=== PATIENT | female | born 1965 | race Caucasian/White ===

== ENCOUNTER 2017-03-13 10:06 | Outpatient (CLI) | payer OTHER | END 2017-03-13 10:07 | disposition home or self-care (01) | LOC: BICMAMMO 10:06 | PROVIDERS: ATTEND Nurse Practitioner Family | DX: Z12.31 Encounter for screening mammogram for malignant neoplasm of breast (principal); Z80.3 Family history of malignant neoplasm of breast | CPT/HCPCS: 77063; 77067 ==

== ENCOUNTER 2017-12-07 12:55 | Outpatient (CLI) | payer OTHER ==
--- NOTE | 2017-12-07 14:51 | ULT ---
LIMITED RIGHT BREAST ULTRASOUND: DATE: 12/07/2017. PROVIDED CLINICAL HISTORY: Right breast palpable abnormality. FINDINGS: Limited sonographic interrogation is performed of the right breast at the 12:30 location approximatel y 10 cm from the nipple in the region of palpable concern. There is a 1.9 cm mixed echogenicity irre gular mass present in the region of palpable concern. No axillary lymph node enlargement is evident sonographically. IMPRESSION: BI-RADS category 4 - suspicious for malignancy. Ultrasound-guided biopsy is recommended. Results an d recommendations discussed with the patient upon completion of the ultrasound exam. CODE CR POS: [facility]
== END 2017-12-07 12:56 | disposition home or self-care (01) ==
LOC: BICMAMMO 12:55
PROVIDERS: ATTEND Nurse Practitioner Family
DX: N63.10 Unspecified lump in the right breast, unspecified quadrant (principal); Z80.3 Family history of malignant neoplasm of breast
CPT/HCPCS: G0279

== ENCOUNTER → 2017-12-11 | Day surgery (SDC) | payer OTHER ==
--- NOTE | 2017-12-11 15:59 | ULT ---
PROCEDURE NOTE: PREPROCEDURE DIAGNOSIS: Right breast mass at the 12:30 position. POSTPROCEDURE DIAGNOSIS: Right breast mass at the 12:30 position. PROCEDURE: Ultrasound-guided core biopsy of right breast mass. MOBILE APPLICATION ENGINEER: Dr. Patton. COMPLICATIONS: None. ANESTHESIA: 10 mL of buffered 1% Lidocaine. SPECIMEN: Five 14-gauge core biopsy specimens of right breast mass. TECHNIQUE: Prior to the procedure, the risks and benefits of a right breast mass biopsy were explained with the patient and she consented fully to the procedure. The mass in the upper aspect of the breast was aga in found with ultrasound. The right breast is prepped and draped in the usual sterile fashion. Approach from lateral was performed. Lidocaine was used to anesthetize the skin and soft tissues mat rounding the mass. A small skin incision was made for passage of the 14 gauge core biopsy device. The 14-gauge core biopsy device was placed 5 separate times through the small skin incision and 5 sep arate core biopsy specimens were obtained. There were placed in formalin. After completion of the p rocedure, a biopsy clip was placed within the mass. Pressure was held to maintain hemostasis. The patient had a postprocedure mammogram which showed the biopsy clip along the posterior aspect of the right breast mass. This could only be seen on the MLO view as the mass was too far posterior to be pulled into view on the craniocaudal view. IMPRESSION: Status post ultrasound-guided biopsy of right breast mass. POS: [facility]
== END ==
LOC: BICULT 12:37
PROVIDERS: ATTEND Nurse Practitioner Family
PROC: 0HBT3ZX Excision of Right Breast, Percutaneous Approach, Diagnostic (ICD-10-PCS; principal; 2017-12-11)
DX: C50.211 Malignant neoplasm of upper-inner quadrant of right female breast (principal)
CPT/HCPCS: 19083; 88305

== ENCOUNTER 2017-12-14 15:37 | Outpatient (CLI) | payer OTHER ==
[2017-12-14 17:40] LABS: #Basophils 0.1 thou/uL (0.0-0.2); #Eosinphils 0.2 thou/uL (0.0-0.7); #Lymphocytes 2.1 thou/uL (1.20-3.40); #Monocytes 0.4 thou/uL (0.11-0.59); #Neutrophils 3.8 thou/uL (1.40-6.50); %Eosinophils 2.5 % (0.0-10.0); %Lymphocytes 32.6 % (21.0-51.0); %Monocytes 5.7 % (0.0-10.0); %Neutrophils 58.3 % (42.0-75.0); Hemoglobin 13.7 g/dL (12.0-16.0); Mean Corpuscular HGB CONC 33.2 g/dL (32.0-36.0); Mean Corpuscular Hemoglobin 28.2 pg (27.0-31.0); Mean Platelet Volume 6.7 fL (7.4-10.4); Platelet Count 273 thou/uL (130-400); Red Blood Cell (RBC) Count 4.84 mill/uL (4.20-5.40); White Blood Cell (WBC) Count 6.4 thou/uL (4.8-10.8)
[2017-12-14 18:07] LABS: Anion Gap 12 mmol/L (10-20); BUN (Urea Nitrogen) 9 mg/dL (9.8-20.1); Calc. Creatinine Clearance 0 mL/min (70-130); Calcium 9.2 mg/dL (7.8-10.44); Carbon Dioxide 25 mmol/L (22-29); Chloride 106 mmol/L (98-107); Estimated GFR-MDRD 77; Glucose 81 mg/dL (70-105); Potassium 3.8 mmol/L (3.5-5.1); Sodium 139 mmol/L (136-145)
== END 2017-12-14 15:38 | disposition home or self-care (01) ==
LOC: LABBT 15:37
PROVIDERS: ATTEND Surgery
DX: Z01.818 Encounter for other preprocedural examination (principal); C50.911 Malignant neoplasm of unspecified site of right female breast
CPT/HCPCS: 80048; 85025; 93005; 93010

== ENCOUNTER 2017-12-19 07:36 | Day surgery (SDC) | payer OTHER ==
[2017-12-14 16:01] VITALS: BMI 25.2
[2017-12-19] MEDS ORDERED: Lidocaine 1% PF 5 ML VIAL ONE ×3 (08:14→17:42)
--- NOTE | 2017-12-19 10:12 | ULT ---
ULTRASOUND GUIDED NEEDLE LOCALIZATION: HISTORY: Right breast mass at the 12:30 position right breast which has been previously biopsied with results obtained of poorly differentiated ductal carcinoma now for needle localization and excisional biopsy. After informed consent was obtained, the patient was prepped and draped in normal sterile fashion. L ocal anesthesia obtained with 1% Xylocaine mixed with sodium bicarb. A 7.5 cm Kellogg needle was advan denisse into the lesion without difficulty. It was placed along the more posterior portion of the mass w ith the needle placed beneath the region of the clip. The patient tolerated the procedure well. The re are no immediate complications of the procedure. IMPRESSION: Ultrasound-directed needle localization of right breast mass at the 12:30 position of the right breas t. POS: [facility]
--- NOTE | 2017-12-19 10:57 | NM ---
NUCLEAR MEDICINE LYMPHOSCINTIGRAPHY OF RIGHT BREAST: HISTORY: Right breast cancer. FINDINGS: After informed consent was obtained, the patient was prepped in the normal sterile fashion. Local an esthesia was obtained with a mixture of Lidocaine and sodium bicarb. A total of 4 separate injection s were performed around the needle with a total dose of 385 mCi of 99m Technetium filtered sulfur col loid. Axillary nodes were noted on the immediate imaging. The patient tolerated the procedure well. There were no immediate complications. IMPRESSION: Successful lymphoscintigraphy. POS: [facility]
[2017-12-19] MEDS ORDERED: Bupivacaine/Epinephrine 0.25% 30 ML VIAL ONE ×2 (11:04→12:08)
[2017-12-19] MEDS ORDERED: Lidocaine 2% PF 5 ML VIAL ONE ×2 (11:04→12:09)
[2017-12-19] MEDS ORDERED: CEFAZOLIN 2 GM/50 ML BAG ONE (11:22)
[2017-12-19] MEDS ORDERED: Fentanyl 100 MCG/2 ML VIAL ONE ×2 (11:22→13:19)
[2017-12-19] MEDS ORDERED: Midazolam HCl 2 mg/2 ml Vial ONE (11:22)
--- NOTE | 2017-12-19 14:11 | MMO ---
SPECIMEN RADIOGRAPH: HISTORY: Breast mass which had been previously biopsied and was now for excisional biopsy. FINDINGS: The Claunch needle was then placed and the breast specimen clip is identified. The mass is somewhat di fficult to distinguish due to the fact it has always been difficult to visualize but also appears to be present on this exam. IMPRESSION: Successful needle localization. POS: [facility]
--- NOTE | 2017-12-19 14:20 | RAD ---
SEMIUPRIGHT PORTABLE CHEST ONE VIEW: HISTORY: A 52-year-old female with a history of Mediport placement. FINDINGS: Left subclavian catheter and injection port in place. The tip is at the junction of the superior rosy a cava and left brachiocephalic vein. No pneumothorax or pleural effusion. Minimal stable increased markings bilaterally. IMPRESSION: 1. Left subclavian catheter and injection port place, with the tip at the junction of the superior v shanelle cava and left innominate vein. 2. Mild stable increased linear and interstitial markings. 3. No pneumothorax or pleural effusion. POS: [facility]
[2017-12-19] MEDS ORDERED: HYDROcodone/Acetaminophen 5/325 mg Tablet ONE (14:38)
[2017-12-19] MEDS ORDERED: Dexamethasone 20 MG/5 ML VIAL ONE (17:42)
[2017-12-19] MEDS ORDERED: ePHEDrine/0.9% NaCl/PF SYRINGE 50 mg/10 ml ONE (17:42)
[2017-12-19] MEDS ORDERED: PROPOFOL 200 MG/20 ML VIAL ONE (17:42)
[2017-12-19] MEDS ORDERED: Metoclopramide HCl 10 MG/2 ML VIAL ONE (17:42)
[2017-12-19] MEDS ORDERED: Ondansetron PF 4 MG/2 ML Vial ONE (17:42)
--- NOTE | 2017-12-20 08:14 | OP ---
DATE OF PROCEDURE: 12/19/2017 PREOPERATIVE DIAGNOSIS: Right breast cancer, clinical stage T1 N0 M0. POSTOPERATIVE DIAGNOSIS: Right breast cancer, clinical stage T1 N0 M0. PROCEDURES PERFORMED: 1. Right partial mastectomy after needle localization. 2. Right deep axillary node biopsy using sentinel protocol. 3. Left chest MediPort (tunneled central line with subcutaneous port, CT injectable). SURGEON: Blayne Call M.D. ANESTHESIA: General. ESTIMATED BLOOD LOSS: Minimal. COMPLICATIONS: None. FINDINGS: The tip of the catheter and the MediPort at the atriocaval junction. TECHNIQUE: The patient underwent preop needle localization wire to the previously biopsied clip area in the right breast as well as lymphoscintigraphy, which revealed update in the right axilla. She w as taken to the operating room and placed supine on the table. After general anesthetic was obtained , the 5 mL of methylene blue dye is infiltrated in the right nipple massaged for 10 minutes. The iglesia ateral neck, chest, arm, and axilla are prepped and draped in a sterile fashion. Local anesthetic wa s infiltrated over the left internal jugular vein. Internal jugular vein cannulated using a 22-gauge finder needle followed by a Seldinger needle. Wire was passed into the superior vena cava under flu oroscopic guidance. A benjamin was made at the wire entrance site. A separate 3-cm incision was made in the left upper chest. Subcutaneous pocket was made below the lower incision. Tubing for the MediPo rt tunneled from the inferior to superior incision. Introducer sheath was placed over the wire into the superior vena cava under fluoroscopic guidance. The dilator and the wire removed. The end of th e catheter was threaded into the sheath and the sheath is peeled away. The tip of the catheter is at the atriocaval junction. The MediPort tubing is cut to fit the MediPort at the lower incision and i s connected to the MediPort. The MediPort sewn to the chest wall and subcutaneous pocket using Prole ne. The MediPort flushes and draws blood without difficulties flushed with a heparin flush. The inc isions are closed using 3-0 Vicryl, 4-0 Monocryl, and Dermabond. Next, an incision was made on the inferior hairline of the right axilla. Neoprobe was used to find a n area of increased uptake. A blue node with high counts was removed. Second area of increased upta ke is removed as well. Background count then drops to near 0. The lymphatic tissue is sent to path for final diagnosis. The wound is irrigated and closed using 3-0 Vicryl, 4-0 Monocryl, and Dermabond . Incision is then made near wire entrance site in the right upper chest. Flaps are raised superior, m edially, inferior laterally around the end of the needle localization wire. The lump is marked with two short superior, one long lateral and sent to path for final diagnosis. Specimen x-ray revealed t he previous clip to be in the specimen. The wound was irrigated. Local anesthetic was applied. The wound was closed using 3-0 Vicryl, 4-0 Monocryl, and Dermabond. The patient was en route to recover y in stable condition. All instrument counts, needle counts, lap counts are correct.
== END 2017-12-19 15:15 | disposition home or self-care (01) ==
LOC: SDC 07:36
PROVIDERS: ATTEND Surgery
PROC: 0JH63WZ Insertion of Totally Implantable Vascular Access Device into Chest Subcutaneous Tissue and Fascia, Percutaneous Approach (ICD-10-PCS; principal; 2017-12-19)
PROC: 07B50ZX Excision of Right Axillary Lymphatic, Open Approach, Diagnostic (ICD-10-PCS; principal; 2017-12-19)
PROC: 0HBT0ZZ Excision of Right Breast, Open Approach (ICD-10-PCS; principal; 2017-12-19)
DX: C50.811 Malignant neoplasm of overlapping sites of right female breast (principal); H81.10 Benign paroxysmal vertigo, unspecified ear; Z17.1 Estrogen receptor negative status [ER-]; Z79.82 Long term (current) use of aspirin; Z79.899 Other long term (current) drug therapy
CPT/HCPCS: 19285; 71045; 76098; 78195; 88307; 88341; 88342; 96374; A9541; C1788; J1100; J1642; J2001; J2250; J2405; J2704; J2765; J3010; Q9968

== ENCOUNTER 2017-12-29 12:33 | Outpatient (CLI) | payer OTHER | END 2017-12-29 12:34 | disposition home or self-care (01) | LOC: ULT 12:33 | PROVIDERS: ATTEND Internal Medicine Hematology & Oncology | DX: Z51.11 Encounter for antineoplastic chemotherapy (principal); C50.211 Malignant neoplasm of upper-inner quadrant of right female breast; Z79.899 Other long term (current) drug therapy | CPT/HCPCS: 93306 ==

== ENCOUNTER 2018-12-03 09:15 | Outpatient (CLI) | payer OTHER ==
--- NOTE | 2018-12-03 09:58 | MMO ---
Bilateral MAMMO Bilat Diag DDI+THIAGO. CLINICAL HISTORY: Patient is 53 years old and is seen for diagnostic exam. The patient has the following family history of breast cancer: mother, malignant (generic), TRIPLE NEGATIVE. The patient has no personal history of cancer. The patient has a history of right Lumpectomy in 2018 - malignant and right Ultrasound Guided Core Biopsy - malignant. VIEWS: The views performed were: bilateral craniocaudal with tomosynthesis; bilateral mediolateral oblique with tomosynthesis; and bilateral mediolateral with tomosynthesis. FILMS COMPARED: The present examination has been compared to prior imaging studies performed at [facility] on 03/13/2017 and 12/07/2017, and at [facility] on 01/01/2014 and 12/15/2015. This study has been interpreted with the assistance of computer-aided detection. MAMMOGRAM FINDINGS: There are scattered fibroglandular densities. There is an area of architectural distortion with associated post-surgical scar seen in the right breast. There are no suspicious masses, suspicious calcifications, or new areas of architectural distortion. IMPRESSION: A ROUTINE FOLLOW-UP MAMMOGRAM IN 1 YEAR IS RECOMMENDED. THE RESULTS OF THIS EXAM WERE SENT TO THE PATIENT. ACR BI-RADS Category 2 - Benign finding MAMMOGRAPHY NOTE: 1. A negative mammogram report should not delay a biopsy if a dominant of clinically suspicious mass is present. 2. Approximately 10% to 15% of breast cancers are not detected by mammography. 3. Adenosis and dense breasts may obscure an underlying neoplasm. Reported by: OLE MUNIZ MD Electonically Signed: [id number]
== END 2018-12-03 09:16 | disposition home or self-care (01) ==
LOC: BICMAMMO 09:15
PROVIDERS: ATTEND Internal Medicine Hematology & Oncology
DX: C50.911 Malignant neoplasm of unspecified site of right female breast (principal)
CPT/HCPCS: 77066; G0279

== ENCOUNTER 2019-12-05 09:17 | Outpatient (CLI) | payer BC ==
--- NOTE | 2019-12-05 10:01 | MMO ---
Bilateral MAMMO Bilat Diag DDI+THIAGO. CLINICAL HISTORY: Patient is 54 years old and is seen for diagnostic exam. The patient has the following family history of breast cancer: mother, malignant (generic), TRIPLE NEGATIVE. The patient has a history of malignant (generic) in 2018. The patient has a history of right Lumpectomy in 2018 - malignant and right Ultrasound Guided Core Biopsy - malignant. VIEWS: The views performed were: bilateral craniocaudal with tomosynthesis; bilateral mediolateral oblique with tomosynthesis; and bilateral mediolateral with tomosynthesis. FILMS COMPARED: The present examination has been compared to prior imaging studies performed at [facility] on 03/13/2017, 12/07/2017 and 12/03/2018, and at [facility] on 12/15/2015. This study has been interpreted with the assistance of computer-aided detection. MAMMOGRAM FINDINGS: There are scattered fibroglandular densities. Finding 1: There is a fat containing mass measuring 30 millimeters with circumscribed margins and associated eggshell or rim calcifications seen in the lower-inner region of the right breast. Evidence for fat necrosis. Finding 2: There are stable benign appearing calcifications seen in both breasts. Finding 3: There is an area of architectural distortion with associated post-surgical scar seen in the upper-outer region of the right breast. There are no suspicious masses, suspicious calcifications, or new areas of architectural distortion. IMPRESSION: THERE IS NO MAMMOGRAPHIC EVIDENCE OF MALIGNANCY. A ROUTINE FOLLOW-UP MAMMOGRAM IN 1 YEAR IS RECOMMENDED. THE RESULTS OF THIS EXAM WERE SENT TO THE PATIENT. ACR BI-RADS Category 2 - Benign finding MAMMOGRAPHY NOTE: 1. A negative mammogram report should not delay a biopsy if a dominant of clinically suspicious mass is present. 2. Approximately 10% to 15% of breast cancers are not detected by mammography. 3. Adenosis and dense breasts may obscure an underlying neoplasm. Reported by: TERE MARTINEZ MD Electonically Signed: [id number]
== END 2019-12-05 09:18 | disposition home or self-care (01) ==
LOC: BICMAMMO 09:17
PROVIDERS: ATTEND Surgery
DX: C50.911 Malignant neoplasm of unspecified site of right female breast (principal); Z80.3 Family history of malignant neoplasm of breast
CPT/HCPCS: 77066; G0279

== ENCOUNTER 2020-12-07 08:26 | Outpatient (CLI) | payer BC | END 2020-12-07 08:27 | disposition home or self-care (01) | LOC: BICMAMMO 08:26 | PROVIDERS: ATTEND Internal Medicine Hematology & Oncology | DX: Z08 Encounter for follow-up examination after completed treatment for malignant neoplasm (principal); Z85.3 Personal history of malignant neoplasm of breast | CPT/HCPCS: 77066; G0279 ==

== ENCOUNTER 2021-12-07 08:29 | Outpatient (CLI) | payer BC | END 2021-12-07 08:30 | disposition home or self-care (01) | LOC: BICMAMMO 08:29 | PROVIDERS: ATTEND Internal Medicine Hematology & Oncology | DX: Z08 Encounter for follow-up examination after completed treatment for malignant neoplasm (principal); Z85.3 Personal history of malignant neoplasm of breast | CPT/HCPCS: 77066; G0279 ==

== ENCOUNTER 2022-12-08 08:49 | Outpatient (CLI) | payer BC | END 2022-12-08 08:50 | disposition home or self-care (01) | LOC: BICMAMMO 08:49 | PROVIDERS: ATTEND Internal Medicine Hematology & Oncology | DX: C50.211 Malignant neoplasm of upper-inner quadrant of right female breast (principal); R11.2 Nausea with vomiting, unspecified | CPT/HCPCS: 77066; G0279 ==

== ENCOUNTER 2023-12-12 10:52 | Outpatient (CLI) | payer BC | END 2023-12-12 10:53 | disposition home or self-care (01) | LOC: BICMAMMO 10:52 | PROVIDERS: ATTEND Internal Medicine Hematology & Oncology | DX: Z12.31 Encounter for screening mammogram for malignant neoplasm of breast (principal); Z80.3 Family history of malignant neoplasm of breast; Z85.3 Personal history of malignant neoplasm of breast; Z98.890 Other specified postprocedural states | CPT/HCPCS: 77063; 77067 ==

== ENCOUNTER 2024-12-13 08:51 | Outpatient (CLI) | payer BC | END 2024-12-13 08:52 | disposition home or self-care (01) | LOC: BICMAMMO 08:51 | PROVIDERS: ATTEND Internal Medicine Hematology & Oncology | DX: Z12.31 Encounter for screening mammogram for malignant neoplasm of breast (principal); Z80.3 Family history of malignant neoplasm of breast; Z85.3 Personal history of malignant neoplasm of breast; Z91.89 Other specified personal risk factors, not elsewhere classified; Z98.890 Other specified postprocedural states | CPT/HCPCS: 77063; 77067 ==